=== PATIENT | male | born 1995 | race Caucasian/White ===

== ENCOUNTER 2019-02-11 22:43 | Emergency (ER) | payer OTHER ==
[~2019-02-11] VITALS: Ht 177.8 cm; Wt 106.6 kg
[2019-02-12] MEDS ORDERED: ONDANSETRON ODT 4 MG TAB PO ONE (01:30)
[2019-02-12] MEDS ORDERED: HYDROcodone-ACET 10/325MG TAB PO ONE (01:30)
[2019-02-12 04:14] VITALS: BP 125/75
== END 2019-02-12 04:15 | disposition home or self-care (01) ==
LOC: ER 22:48
DX: S42.031A Displaced fracture of lateral end of right clavicle, initial encounter for closed fracture (principal); W22.8XXA Striking against or struck by other objects, initial encounter; Y93.89 Activity, other specified; Y92.832 Beach as the place of occurrence of the external cause; Y99.8 Other external cause status
CPT/HCPCS: 29505; 73000; 73030; 99283; Q0162